=== PATIENT | male | born 1955 | race Caucasian/White ===

== ENCOUNTER 2024-05-02 06:48 | Day surgery (SDC) | payer MEDICARE ==
[2024-05-02] MEDS: Lactated Ringers 1,000 ML IV SCH (06:55)
[2024-05-02] MEDS ORDERED: Midazolam 1 MG/ML 2 ML SDV ONE (07:10)
[2024-05-02] MEDS ORDERED: Lidocaine 1% 2 ML ONE (07:11)
[2024-05-02] MEDS ORDERED: Propofol 200 MG/20 ML SDV ONE (07:11)
[2024-05-02] MEDS ORDERED: Ondansetron 4 MG/2 ML SDV IVPUSH PRN ×2 (07:28→09:29)
[2024-05-02] MEDS ORDERED: Sodium Chloride 0.9% 10 ML Syringe FLUSH PRN (08:00)
[2024-05-02] MEDS ORDERED: Sodium Chloride 0.9% 10 ML Syringe FLUSH SCH (09:00)
[2024-05-02 09:08] VITALS: BP 155/82; PULSE 69
[2024-05-02] MEDS ORDERED: fentaNYL 100 MCG/2 ML SDV IVPUSH PRN (09:29)
[2024-05-02] MEDS ORDERED: HYDROmorphone 0.5 MG/0.5 ML Syringe IVPUSH PRN (09:29)
== END 2024-05-02 09:15 | disposition home or self-care (01) ==
LOC: JD.SDS 06:48
PROVIDERS: ATTEND Surgery
DX: Z12.11 Encounter for screening for malignant neoplasm of colon (principal); D12.2 Benign neoplasm of ascending colon; D12.3 Benign neoplasm of transverse colon; K63.5 Polyp of colon; K57.30 Diverticulosis of large intestine without perforation or abscess without bleeding; Z86.010 Personal history of colon polyps; J44.9 Chronic obstructive pulmonary disease, unspecified; K21.9 Gastro-esophageal reflux disease without esophagitis; I10 Essential (primary) hypertension; N40.0 Benign prostatic hyperplasia without lower urinary tract symptoms; Z79.899 Other long term (current) drug therapy; Z91.030 Bee allergy status
CPT/HCPCS: 45380; J2250; J2704; J7120; 88305; J3490